=== PATIENT | female | born 1990 | race Caucasian/White ===

== ENCOUNTER 2016-07-18 09:16 | Emergency (ER) | payer SELFPAY ==
[~2016-07-18] VITALS: Ht 165.1 cm; Wt 99.8 kg
[2016-07-18 09:16] VITALS: BP 140/99
[2016-07-18] MEDS ORDERED: KETOROLAC TROMETHAMINE INJ 30 MG/ML VIAL ONE (10:10)
[2016-07-18] MEDS ORDERED: diphenhydrAMINE HCL 50 MG/ML VIAL ONE (10:10)
[2016-07-18] MEDS ORDERED: METOCLOPRAMIDE HCL 10 MG/2 ML VIAL ONE (10:10)
[2016-07-18] MEDS ORDERED: diphenhydrAMINE HCL 50 MG/ML VIAL IV ONE (10:30)
[2016-07-18] MEDS ORDERED: METOCLOPRAMIDE HCL 15 MG in IV NS 0.9% 50 ML IV PRN (10:30)
[2016-07-18] MEDS ORDERED: METOCLOPRAMIDE HCL 10 MG/2 ML VIAL IV ONE (10:30)
[2016-07-18] MEDS ORDERED: KETOROLAC TROMETHAMINE INJ 30 MG/ML VIAL IV ONE (10:30)
[2016-07-18] MEDS ORDERED: IV SET PRIMARY PUMP SET 1 EA INFUS.SET MC ONE (10:44)
--- NOTE | 2016-07-18 11:53 | NUR ---
IV removed. Catheter intact and site benign. Pressure and 4x4 applied to site. No bleeding noted.
--- NOTE | 2016-07-18 11:53 | NUR ---
Patient discharged to home in stable condition. Written and verbal after care instructions given. Patient verbalizes understanding of instruction.
== END 2016-07-18 11:54 | disposition home or self-care (01) ==
LOC: ER 09:19
DX: G43.909 Migraine, unspecified, not intractable, without status migrainosus (principal); E89.0 Postprocedural hypothyroidism
CPT/HCPCS: 96365; 96375; 99284; A4216; A4606; J1200; J1885; J2765 ×2; Z7610